=== PATIENT | female | born 1965 | race Caucasian/White ===

== ENCOUNTER 2021-06-14 16:29 | Inpatient (IN) | payer MEDICARE, MEDICAID ==
[~2021-06-14] VITALS: Ht 165.1 cm; Wt 70.9 kg
[~2021-06-14 16:29] MED LIST: ACET-890; COL100C PO; DIPH-423 PO; DIVA-76 PO; FLUT16SP2 NS; FOLI-43 PO; FURO40TA4 PO; GUAI5SYR5 PO; GUAI600T PO; HYDR1TAB PO; IBUP-1984 PO; LEVO25TA50 PO; POTA20TA39 PO; TRI150T CORPAK; [UNRECOGNIZED DRUG - CODE] CORPAK; [UNRECOGNIZED DRUG - CODE] PO
[2021-06-14] MEDS ORDERED: hydrALAZINE 20mg/ml inj. IV PRN (17:50)
[2021-06-14] MEDS ORDERED: morphine 2 MG/ML inj. syringe IV PRN (17:50)
[2021-06-14] MEDS ORDERED: acetaminophen 325mg tablet PO PRN (17:50)
[2021-06-14 18:01] LABS: BASOPHILS % (AUTO) 0.4 % (0-1); EOSINOPHILS % (AUTO) 0.4 % (0-6); HEMATOCRIT 38.9 % (35.0-45.0); HEMOGLOBIN 13.2 g/dl (12.0-16.0); LYMPHOCYTES # (AUTO) 2.2 X10'3 (1.1-4.8); LYMPHOCYTES % (AUTO) 26.4 % (21-51); MEAN CORPUSCULAR HEMOGLOBIN 34.5 PG (27.0-31.0); MEAN CORPUSCULAR HGB CONC 33.8 g/dL (33.0-36.5); MEAN CORPUSCULAR VOLUME 101.8 FL (78-98); MEAN PLATELET VOLUME 8.6 FL (7.4-10.4); MONOCYTES # (AUTO) 0.9 X10'3 (0-0.9); MONOCYTES % (AUTO) 11.2 % (2-12); NEUTROPHILS # (AUTO) 5.2 X10'3 (1.8-7.7); NEUTROPHILS % (AUTO) 61.6 % (42-75); PLATELET COUNT 153 X10'3 (140-440); RED BLOOD COUNT 3.82 X10'6 (4.20-5.60); RED CELL DISTRIBUTION WIDTH 14.1 % (11.5-14.5); WHITE BLOOD COUNT 8.4 X10'3 (4.5-11.0)
[2021-06-14 18:22] LABS: ALANINE AMINOTRANSFERASE 22 U/L (12-78); ALBUMIN 2.6 G/DL (3.4-5.0); ALBUMIN/GLOBULIN RATIO 0.7 (1.1-1.5); ALKALINE PHOSPHATASE 164 IU/L (46-116); ANION GAP 7 (8-16); ASPARTATE AMINO TRANSFERASE 42 U/L (10-37); BILIRUBIN,TOTAL 0.4 MG/DL (0.1-1.0); BLOOD UREA NITROGEN 39 MG/DL (7-18); BUN/CREATININE RATIO 47.6 (6.6-38.0); CALCIUM 9.2 MG/DL (8.5-10.1); CHLORIDE 104 MMOL/L (99-107); CREATININE 0.82 MG/DL (0.40-0.90); GLUCOSE 87 MG/DL (70-104); POTASSIUM 4.6 MMOL/L (3.5-5.1); SODIUM 144 MMOL/L (135-145); TOTAL CARBON DIOXIDE 32.6 MMOL/L (24-32); TOTAL PROTEIN 6.5 G/DL (6.4-8.2); eGFR 73 ML/MIN
--- NOTE | 2021-06-14 18:30 | NUR ---
pt given dinner tray family states pt hasnot ate since 1230 today
--- NOTE | 2021-06-14 19:00 | NUR ---
pt moved from [place] to room 17 to await ipa
--- NOTE | 2021-06-14 19:45 | NUR ---
pt and pt family notified they are NPO
[2021-06-14] MEDS: docusate sod 100mg capsule PO SCH (20:00)
[2021-06-14] MEDS ORDERED: DOCU250C39 PO (20:14)
[2021-06-14] MEDS ORDERED: PHEN16.22 PO (20:14)
[2021-06-14] MEDS ORDERED: LEVO200T8 PO (20:14)
[2021-06-14] MEDS ORDERED: CHOL20002 PO (20:14)
[2021-06-14] MEDS ORDERED: CALC-1276 PO (20:14)
[2021-06-14] MEDS ORDERED: DIPH-1055 PO (20:14)
[2021-06-14] MEDS ORDERED: IBAN150T21 PO (20:14)
[2021-06-14] MEDS ORDERED: CITA10TA14 PO (20:14)
[2021-06-14] MEDS ORDERED: ZINC50TA67 PO (20:20)
[2021-06-14] MEDS ORDERED: MULT-1085 PO (20:20)
[2021-06-14] MEDS ORDERED: ASCO-10 PO (20:20)
[2021-06-14] MEDS ORDERED: CHOL500049 PO (20:20)
[2021-06-14] MEDS ORDERED: ASCO500C17 PO (20:20)
[2021-06-14] MEDS: normal saline 1000ml 1,000 ML IV SCH (20:46)
[2021-06-14] MEDS: ondansetron/PF 4mg/2ml inj IV PRN (21:16)
[2021-06-14] MEDS: morphine 2 MG/ML inj. syringe IV PRN (21:17)
[2021-06-15] VITALS (22 sets, daily range): BP systolic 91–145; BP diastolic 46–80
--- NOTE | 2021-06-15 00:27 | NUR ---
PT IS RESTING. RECENT PAIN STAFF COUNSELOR SEEMS TO HAVE BEEN EFFECTIVE ACCORDING TO PT. PT IS RESTING WITH EVEN CHEST RISE AND FALL.
[2021-06-15] MEDS: morphine 2 MG/ML inj. syringe IV PRN ×5 (01:03→23:15)
[2021-06-15] MEDS ORDERED: metoclopramide 5 mg/ml inj IV ONE (01:20)
[2021-06-15 04:14] LABS: BASOPHILS % (AUTO) 0.5 % (0-1); EOSINOPHILS % (AUTO) 0.9 % (0-6); HEMATOCRIT 31.1 % (35.0-45.0); HEMOGLOBIN 10.6 g/dl (12.0-16.0); LYMPHOCYTES # (AUTO) 1.7 X10'3 (1.1-4.8); LYMPHOCYTES % (AUTO) 31.5 % (21-51); MEAN CORPUSCULAR HEMOGLOBIN 34.4 PG (27.0-31.0); MEAN PLATELET VOLUME 8.1 FL (7.4-10.4); MONOCYTES # (AUTO) 0.7 X10'3 (0-0.9); MONOCYTES % (AUTO) 13.2 % (2-12); NEUTROPHILS # (AUTO) 2.8 X10'3 (1.8-7.7); NEUTROPHILS % (AUTO) 53.9 % (42-75); PLATELET COUNT 110 X10'3 (140-440); RED BLOOD COUNT 3.09 X10'6 (4.20-5.60); WHITE BLOOD COUNT 5.3 X10'3 (4.5-11.0)
[2021-06-15 04:15] LABS: ALBUMIN 1.9 G/DL (3.4-5.0); ANION GAP 2 (8-16); BLOOD UREA NITROGEN 30 MG/DL (7-18); BUN/CREATININE RATIO 42.3 (6.6-38.0); CALCIUM 8.1 MG/DL (8.5-10.1); CHLORIDE 108 MMOL/L (99-107); CREATININE 0.71 MG/DL (0.40-0.90); GLUCOSE 92 MG/DL (70-104); POTASSIUM 4.4 MMOL/L (3.5-5.1); SODIUM 144 MMOL/L (135-145); TOTAL CARBON DIOXIDE 33.8 MMOL/L (24-32); eGFR 86 ML/MIN
[2021-06-15] MEDS: ondansetron/PF 4mg/2ml inj IV PRN (05:32)
[2021-06-15] MEDS: normal saline 1000ml 1,000 ML IV SCH ×3 (05:36→23:50)
[2021-06-15] MEDS: docusate sod 100mg capsule PO SCH ×2 (08:00→20:31)
[2021-06-15] MEDS: enoxaparin 40mg/0.4ml syringe SUBCUT SCH (08:00)
[2021-06-15] MEDS ORDERED: ringers solution, lacted 1,000 ML IV ONE (08:10)
[2021-06-15] MEDS ORDERED: non-formulary drug (Ibandronate Sodium 1 TAB) PO SCH (08:30)
[2021-06-15] MEDS ORDERED: divalproex sodium 500mg tablet.DR PO SCH (08:30)
[2021-06-15] MEDS ORDERED: CHOL20002 PO (09:35)
[2021-06-15] MEDS: divalproex sodium 500mg tablet.DR PO SCH (10:55)
--- NOTE | 2021-06-15 11:06 | NUR ---
georgie del rosario at bedside.
--- NOTE | 2021-06-15 11:29 | NUR ---
CALL JAKOB AUDITOR INTERNAL FOR ANY QUES OR CONCERN CALL [phone] HOUSE NUMBER ,CELLPHONE [phone].
--- NOTE | 2021-06-15 11:58 | NUR ---
[employer]ING [employer] SALES ATTENDANT JAKOB AT BEDSIDE.
[2021-06-15] MEDS ORDERED: ceFAZolin 1000mg inj ONE (13:35)
[2021-06-15] MEDS ORDERED: vancomycin 1,000mg inj ONE (13:35)
[2021-06-15] MEDS ORDERED: ePHEDrine 50MG/ML INJ. ONE (13:54)
[2021-06-15] MEDS ORDERED: sevoflurane 250ml liquid IH ONE (13:54)
[2021-06-15] MEDS ORDERED: midazolam 1 mg/ML 2ml injection ONE (13:58)
[2021-06-15] MEDS ORDERED: fentaNYL /PF 50mcg/ml 5ml ampule ONE (13:59)
[2021-06-15] MEDS ORDERED: clindamycin phosphate 150mg/ml inj. ONE (14:23)
[2021-06-15] MEDS ORDERED: TRANEXAMIC ACID 1 GM IN NACL,ISO-OS 100 ML IV ONE ×2 (14:25→16:30)
[2021-06-15] MEDS ORDERED: propofol inj 20 ML IV ONE (14:31)
[2021-06-15] MEDS ORDERED: rocuronium 10mg/ml inj IV ONE (14:31)
[2021-06-15] MEDS ORDERED: LIDOcaine 2% (20mg/ml) 5ml vial ONE (14:44)
[2021-06-15] MEDS ORDERED: ringers solution, lacted 1,000 ML IV SCH (15:10)
[2021-06-15] MEDS ORDERED: proCHLORperazine 10 MG/2 ml inj IV PRN (15:10)
[2021-06-15] MEDS ORDERED: meperidine/PF 25mg/ml syringe IV PRN ×3 (15:10)
[2021-06-15] MEDS ORDERED: ondansetron/PF 4mg/2ml inj IV PRN (15:10)
[2021-06-15] MEDS ORDERED: morphine 4 MG/ML inj SYRINge IV PRN (15:10)
[2021-06-15] MEDS ORDERED: morphine 2 MG/ML inj. syringe IV PRN (15:10)
[2021-06-15] MEDS ORDERED: acetaminophen 1,000mg/100ml IV 100 ML IV ONE (15:43)
[2021-06-15] MEDS ORDERED: glycopyrrolate 0.2mg/ml inj ONE (15:43)
[2021-06-15] MEDS ORDERED: ondansetron/PF 4mg/2ml inj ONE (15:43)
[2021-06-15] MEDS ORDERED: dexamethasone sod phosphate 4mg/ml inj. ONE (15:43)
[2021-06-15] MEDS ORDERED: neostigmine methylsulfate 1 MG/ML 10ml vial ONE (15:43)
--- NOTE | 2021-06-15 16:25 | NUR ---
Received from OR via , accompanied by Anesthesiologist DR LANDAVERDE and report given by Anesthesiolgist.AWAKENS TO VOICE. VITALS STABLE. DRESSING DI. KRISTI PAIN, ABDUCTION PILLOW IN PLACE. LEYVA WITH CLEAR URINE.
[2021-06-15 16:54] LABS: ISTAT ANION GAP 8 (8-12); ISTAT BUN 17 mg/dL (7-18); ISTAT CL 103 mmol/L (99-107); ISTAT CREATININE 0.5 mg/dL (0.6-1.1); ISTAT GLUCOSE 92 mg/dL (70-105); ISTAT HGB 8.2 g/dl (12.0-16.0); ISTAT Hct 24 %PCV (35-48); ISTAT IONIZED CALCIUM 1.17 mmol/L (1.03-1.32); ISTAT K 4.1 mmol/L (3.5-5.1); ISTAT NA 139 mmol/L (135-145); ISTAT TOTAL CO2 28 mmol/L (24-32); ISTAT eGFR > 90 ML/MIN
--- NOTE | 2021-06-15 18:45 | NUR ---
Report called to receiving nurse. Transferred via BED Belongings . Special Issues communicated to receiving nurse. AWAKE AND ORIENTED. VITALS STABLE. DRESSING DI. KRISTI PAIN. TO SURGICAL RM 355B AT THIS TIME.
[2021-06-15] MEDS ORDERED: non-formulary drug (Zinc 1 TAB) PO SCH (20:00)
[2021-06-15] MEDS ORDERED: oxcarbazepine 150mg tablet CORPAK SCH (20:00)
[2021-06-15] MEDS: calcium carbonate/vitamin D3 tablet PO SCH (20:26)
[2021-06-15] MEDS: ascorbic acid 500mg tablet PO SCH (20:31)
[2021-06-15] MEDS: diphenhydrAMINE 25mg capsule PO SCH (20:32)
[2021-06-15] MEDS: clindamycin 600mg/D5W 50ml 50 ML IV SCH (22:36)
[2021-06-15] MEDS ORDERED: phenobarbital 30mg tablet PO SCH (23:00)
[2021-06-16 00:08] VITALS: BP 101/59
[2021-06-16 03:07] VITALS: BP 88/55
[2021-06-16] MEDS: clindamycin 600mg/D5W 50ml 50 ML IV SCH ×2 (03:48→08:33)
[2021-06-16] MEDS: HYDROcodone/acetaminophen 5mg/325mg tablet PO PRN ×2 (05:24→11:32)
--- NOTE | 2021-06-16 06:07 | NUR ---
reported to days. noted decreased BP and possible drop in hemaglobin. check labs prior to PT. norco 5 given for PT pain. pt has not slept all night. continuously eating.
[2021-06-16 06:41] LABS: BASOPHILS % (AUTO) 0.2 % (0-1); EOSINOPHILS % (AUTO) 0.2 % (0-6); HEMATOCRIT 29.1 % (35.0-45.0); HEMOGLOBIN 9.9 g/dl (12.0-16.0); LYMPHOCYTES # (AUTO) 1.2 X10'3 (1.1-4.8); LYMPHOCYTES % (AUTO) 18.3 % (21-51); MEAN CORPUSCULAR HEMOGLOBIN 34.9 PG (27.0-31.0); MEAN CORPUSCULAR VOLUME 102.6 FL (78-98); MEAN PLATELET VOLUME 8.2 FL (7.4-10.4); MONOCYTES # (AUTO) 1.2 X10'3 (0-0.9); MONOCYTES % (AUTO) 18.1 % (2-12); NEUTROPHILS % (AUTO) 63.2 % (42-75); PLATELET COUNT 130 X10'3 (140-440); RED BLOOD COUNT 2.84 X10'6 (4.20-5.60); RED CELL DISTRIBUTION WIDTH 13.5 % (11.5-14.5); WHITE BLOOD COUNT 6.4 X10'3 (4.5-11.0)
[2021-06-16 07:00] VITALS: BP 99/62
[2021-06-16 07:00] LABS: ALBUMIN 1.7 G/DL (3.4-5.0); ANION GAP 2 (8-16); BLOOD UREA NITROGEN 19 MG/DL (7-18); BUN/CREATININE RATIO 32.2 (6.6-38.0); CHLORIDE 111 MMOL/L (99-107); CREATININE 0.59 MG/DL (0.40-0.90); GLUCOSE 104 MG/DL (70-104); POTASSIUM 4.7 MMOL/L (3.5-5.1); SODIUM 143 MMOL/L (135-145); TOTAL CARBON DIOXIDE 30.5 MMOL/L (24-32); eGFR > 90 ML/MIN
[2021-06-16 07:56] LABS: TOTAL CELLS COUNTED 100
[2021-06-16 07:57] LABS: LARGE PLATELETS FEW; PLATELET ESTIMATE DECREASED
[2021-06-16] MEDS ORDERED: levoTHYROXINE 25mcg tablet PO SCH (08:00)
[2021-06-16] MEDS ORDERED: non-formulary drug (Ascorbic Acid (Vitamin C) 1 CAP) PO SCH (08:00)
[2021-06-16] MEDS ORDERED: non-formulary drug (Cholecalciferol (Vitamin D3) (Vitamin D3) 1 CAP) PO SCH (08:00)
[2021-06-16] MEDS ORDERED: docusate sod 250mg capsule PO SCH (08:00)
[2021-06-16] MEDS ORDERED: non-formulary drug (Levothyroxine Sodium 1 TAB) PO SCH (08:00)
[2021-06-16] MEDS: levetiracetam 250mg tablet PO SCH (08:35)
[2021-06-16] MEDS: docusate sod 100mg capsule PO SCH ×2 (08:37→21:15)
[2021-06-16] MEDS: divalproex sodium 500mg tablet.DR PO SCH (08:37)
[2021-06-16] MEDS: potassium chloride 8mEq ER tablet PO SCH (08:37)
[2021-06-16] MEDS: calcium carbonate/vitamin D3 tablet PO SCH ×2 (08:38→21:15)
[2021-06-16] MEDS: cholecalciferol (vitamin D3) 1,000 unit (25mcg) tablet PO SCH (08:38)
[2021-06-16] MEDS: ascorbic acid 500mg tablet PO SCH (08:38)
[2021-06-16] MEDS: levoTHYROXINE 100mcg tablet PO SCH (08:39)
[2021-06-16] MEDS: multivitamins, therapeutics tablet PO SCH (08:39)
[2021-06-16] MEDS: furosemide 40mg tablet PO SCH (08:39)
[2021-06-16] MEDS: folic acid 1mg tablet PO SCH (08:39)
[2021-06-16] MEDS: CITALOpram 10mg tablet PO SCH (08:40)
[2021-06-16] MEDS: enoxaparin 40mg/0.4ml syringe SUBCUT SCH (08:41)
[2021-06-16] MEDS: normal saline 1000ml 1,000 ML IV SCH (09:50)
[2021-06-16 11:00] VITALS: BP 113/59
[2021-06-16] MEDS ORDERED: phenobarbital 30mg tablet PO SCH (11:05)
--- NOTE | 2021-06-16 12:29 | NUR ---
Contacted Yasmeen patients Health Sciences Manager to bring in patients dosage of Phenobarbital because we don't carry that dose. She said she will check and get back to me.
--- NOTE | 2021-06-16 12:35 | NUR ---
combed patients hair and performed oral care - brushed patient's teeth Addendum: 06/16/21 at 1237 by Alix Mims - Student CRUZ Amended: Links added.
[2021-06-16] MEDS ORDERED: HYDROcodone/acetaminophen 5mg/325mg tablet PO ONE (14:05)
[2021-06-16] MEDS ORDERED: oxcarbazepine 150mg tablet PO SCH (14:15)
[2021-06-16] MEDS: oxcarbazepine 150mg tablet PO SCH ×2 (14:28→21:14)
[2021-06-16 16:18] VITALS: BP 119/69
[2021-06-16] MEDS: mag hydrox/Alum hydrox/simeth 30ml oral suspension PO PRN ×2 (16:46→23:38)
[2021-06-16 18:00] VITALS: BP 144/57
--- NOTE | 2021-06-16 19:12 | NUR ---
Problems reprioritized. Patient report given, questions answered & plan of care reviewed with Jeniffer WU.
--- NOTE | 2021-06-16 19:32 | NUR ---
Patient in room [facility]. I have received report from Mallory WU and had the opportunity to ask questions and assume patient care.
[2021-06-16] MEDS: PHENOBARBITAL 16.2 MG PO SCH (21:15)
[2021-06-16] MEDS: diphenhydrAMINE 25mg capsule PO SCH (21:15)
[2021-06-16] MEDS: morphine 2 MG/ML inj. syringe IV PRN (21:17)
[2021-06-17] VITALS (7 sets, daily range): BP systolic 104–124; BP diastolic 52–66
[2021-06-17] MEDS: morphine 2 MG/ML inj. syringe IV PRN (03:31)
--- NOTE | 2021-06-17 06:28 | NUR ---
Problems reprioritized. Patient report given, questions answered & plan of care reviewed with Mallory WU.
[2021-06-17 06:38] LABS: BASOPHILS % (AUTO) 0.2 % (0-1); EOSINOPHILS % (AUTO) 0.5 % (0-6); HEMATOCRIT 26.3 % (35.0-45.0); LYMPHOCYTES # (AUTO) 1.7 X10'3 (1.1-4.8); LYMPHOCYTES % (AUTO) 18.5 % (21-51); MEAN CORPUSCULAR HEMOGLOBIN 34.6 PG (27.0-31.0); MEAN CORPUSCULAR HGB CONC 34.3 g/dL (33.0-36.5); MEAN CORPUSCULAR VOLUME 100.9 FL (78-98); MEAN PLATELET VOLUME 7.5 FL (7.4-10.4); MONOCYTES # (AUTO) 1.6 X10'3 (0-0.9); NEUTROPHILS # (AUTO) 5.6 X10'3 (1.8-7.7); NEUTROPHILS % (AUTO) 62.8 % (42-75); PLATELET COUNT 128 X10'3 (140-440); RED BLOOD COUNT 2.61 X10'6 (4.20-5.60); RED CELL DISTRIBUTION WIDTH 14.1 % (11.5-14.5); WHITE BLOOD COUNT 8.9 X10'3 (4.5-11.0)
[2021-06-17 06:52] LABS: ALBUMIN 1.5 G/DL (3.4-5.0); ANION GAP 2 (8-16); BLOOD UREA NITROGEN 17 MG/DL (7-18); BUN/CREATININE RATIO 29.8 (6.6-38.0); CALCIUM 7.9 MG/DL (8.5-10.1); CHLORIDE 108 MMOL/L (99-107); CREATININE 0.57 MG/DL (0.40-0.90); GLUCOSE 106 MG/DL (70-104); POTASSIUM 4.1 MMOL/L (3.5-5.1); SODIUM 142 MMOL/L (135-145); TOTAL CARBON DIOXIDE 32.1 MMOL/L (24-32); eGFR > 90 ML/MIN
--- NOTE | 2021-06-17 07:08 | NUR ---
Patient in room [facility]. I have received report from Jeniffer WU and had the opportunity to ask questions and assume patient care.
[2021-06-17] MEDS: CITALOpram 10mg tablet PO SCH (08:00)
[2021-06-17] MEDS: divalproex sodium 500mg tablet.DR PO SCH (08:24)
[2021-06-17] MEDS: oxcarbazepine 150mg tablet PO SCH ×2 (08:24→20:00)
[2021-06-17] MEDS: ascorbic acid 500mg tablet PO SCH (08:24)
[2021-06-17] MEDS: multivitamins, therapeutics tablet PO SCH (08:25)
[2021-06-17] MEDS: levoTHYROXINE 100mcg tablet PO SCH (08:25)
[2021-06-17] MEDS: furosemide 40mg tablet PO SCH (08:26)
[2021-06-17] MEDS: calcium carbonate/vitamin D3 tablet PO SCH ×2 (08:26→20:00)
[2021-06-17] MEDS: potassium chloride 8mEq ER tablet PO SCH (08:26)
[2021-06-17] MEDS: docusate sod 100mg capsule PO SCH ×2 (08:26→20:00)
[2021-06-17] MEDS: folic acid 1mg tablet PO SCH (08:26)
[2021-06-17] MEDS: HYDROcodone/acetaminophen 5mg/325mg tablet PO PRN (08:27)
[2021-06-17] MEDS: cholecalciferol (vitamin D3) 1,000 unit (25mcg) tablet PO SCH (08:28)
[2021-06-17] MEDS: levetiracetam 250mg tablet PO SCH (08:28)
[2021-06-17] MEDS: enoxaparin 40mg/0.4ml syringe SUBCUT SCH (08:29)
[2021-06-17] MEDS: magnesium hydroxide 30ml (MOM) UD suspension PO PRN (10:51)
[2021-06-17] MEDS: HYDROcodone/acetaminophen 10/325mg tab PO PRN ×3 (12:10→20:00)
--- NOTE | 2021-06-17 14:04 | NUR ---
Initial: Pt admit with left hip fracture. S/p left hip rhina arthroplasty 06/15. Pt on a regular diet documented with 75-100% PO intake meeting estimated nutrient needs at this time. LBM 06/16, receiving routine and PRN bowel care. No nutrition intervention implemented at this time. Will continue to follow. Recommendations: 1) Continue regular diet 2) Monitor need for additional protein for satiety 3) Routine bowel care 4) Scaled weight this admit; weekly scaled weights thereafter Addendum: 06/17/21 at [address] Amended: Links added.
--- NOTE | 2021-06-17 17:19 | NUR ---
BLADDER SCAN PERFORMED. 25ml VOLUME. WILL CONTINUE TO MONITOR
--- NOTE | 2021-06-17 17:50 | NUR ---
PAGER ID: [phone] MESSAGE: Mallory-Surg [id number] Re: Lisandro 355B patients craven DC'd at 1300 has not voided only has 25 ml's on bladder scan
--- NOTE | 2021-06-17 18:38 | NUR ---
Problems reprioritized. Patient report given, questions answered & plan of care reviewed with Cindi WU.
--- NOTE | 2021-06-17 18:41 | NUR ---
Patient in room [facility]. I have received report from Mallory WU and had the opportunity to ask questions and assume patient care.
[2021-06-17] MEDS: diphenhydrAMINE 25mg capsule PO SCH (21:19)
[2021-06-17] MEDS: PHENOBARBITAL 16.2 MG PO SCH (21:19)
--- NOTE | 2021-06-17 21:57 | NUR ---
Patient voided 100ml in bedpan. Dark martin urine. Bladder scanned performed and 5ml found, will continue to encourage fluids.
[2021-06-18] VITALS: BP 118/69
[2021-06-18] MEDS: HYDROcodone/acetaminophen 10/325mg tab PO PRN ×2 (04:09→10:18)
[2021-06-18 06:36] LABS: BASOPHILS % (AUTO) 0.3 % (0-1); EOSINOPHILS # (AUTO) 0.1 X10'3 (0-0.9); HEMATOCRIT 25.2 % (35.0-45.0); HEMOGLOBIN 8.6 g/dl (12.0-16.0); LYMPHOCYTES # (AUTO) 1.6 X10'3 (1.1-4.8); LYMPHOCYTES % (AUTO) 19.9 % (21-51); MEAN CORPUSCULAR HEMOGLOBIN 34.9 PG (27.0-31.0); MEAN CORPUSCULAR HGB CONC 34.1 g/dL (33.0-36.5); MEAN CORPUSCULAR VOLUME 102.6 FL (78-98); MEAN PLATELET VOLUME 7.6 FL (7.4-10.4); MONOCYTES # (AUTO) 1.4 X10'3 (0-0.9); MONOCYTES % (AUTO) 17.6 % (2-12); NEUTROPHILS # (AUTO) 4.8 X10'3 (1.8-7.7); NEUTROPHILS % (AUTO) 61.2 % (42-75); PLATELET COUNT 139 X10'3 (140-440); RED BLOOD COUNT 2.46 X10'6 (4.20-5.60); RED CELL DISTRIBUTION WIDTH 14.1 % (11.5-14.5); WHITE BLOOD COUNT 7.9 X10'3 (4.5-11.0)
--- NOTE | 2021-06-18 06:39 | NUR ---
Problems reprioritized. Patient report given, questions answered & plan of care reviewed with Letty WU.
[2021-06-18 06:57] LABS: ALBUMIN 1.3 G/DL (3.4-5.0); ANION GAP 0 (8-16); BLOOD UREA NITROGEN 16 MG/DL (7-18); BUN/CREATININE RATIO 27.6 (6.6-38.0); CALCIUM 8.3 MG/DL (8.5-10.1); CHLORIDE 106 MMOL/L (99-107); CREATININE 0.58 MG/DL (0.40-0.90); GLUCOSE 95 MG/DL (70-104); POTASSIUM 4.4 MMOL/L (3.5-5.1); SODIUM 140 MMOL/L (135-145); TOTAL CARBON DIOXIDE 34.2 MMOL/L (24-32); eGFR > 90 ML/MIN
[2021-06-18] MEDS: enoxaparin 40mg/0.4ml syringe SUBCUT SCH (10:12)
[2021-06-18] MEDS: cholecalciferol (vitamin D3) 1,000 unit (25mcg) tablet PO SCH (10:13)
[2021-06-18] MEDS: CITALOpram 10mg tablet PO SCH (10:13)
[2021-06-18] MEDS: levoTHYROXINE 100mcg tablet PO SCH (10:14)
[2021-06-18] MEDS: levetiracetam 250mg tablet PO SCH (10:14)
[2021-06-18] MEDS: diphenhydrAMINE 25mg capsule PO SCH (10:15)
[2021-06-18] MEDS: furosemide 40mg tablet PO SCH (10:16)
[2021-06-18] MEDS: divalproex sodium 500mg tablet.DR PO SCH (10:17)
[2021-06-18] MEDS: folic acid 1mg tablet PO SCH (10:17)
[2021-06-18] MEDS: ascorbic acid 500mg tablet PO SCH (10:17)
[2021-06-18] MEDS: docusate sod 100mg capsule PO SCH (10:18)
[2021-06-18] MEDS: magnesium hydroxide 30ml (MOM) UD suspension PO PRN (10:20)
[2021-06-18] MEDS: mag hydrox/Alum hydrox/simeth 30ml oral suspension PO PRN (10:20)
[2021-06-18] MEDS: oxcarbazepine 150mg tablet PO SCH (13:18)
[2021-06-18] MEDS: multivitamins, therapeutics tablet PO SCH (13:18)
[2021-06-18] MEDS: potassium chloride 8mEq ER tablet PO SCH (13:18)
[2021-06-18] MEDS: calcium carbonate/vitamin D3 tablet PO SCH (13:23)
--- NOTE | 2021-06-18 16:00 | NUR ---
Patient stable upon discharge. Patient left with the med van without the nurse present, transfer package did not include nurses report but telephone report was given to Jone at the [facility].RN called to [facility] to take off right AC IV. Spoke with Jone and stated thT IV has been taken out
== END 2021-06-18 14:10 | DRG 522 ==
LOC: ER 16:30 → ED HOLD 17:50 → SUR 3N 06-15 18:45
PROVIDERS: ADMIT Family Medicine; ATTEND Family Medicine
PROC: 0SRS0JA Replacement of Left Hip Joint, Femoral Surface with Synthetic Substitute, Uncemented, Open Approach (ICD-10-PCS; principal; 2021-06-15 13:54)
DX: M80.852A Other osteoporosis with current pathological fracture, left femur, initial encounter for fracture (principal); S70.12XA Contusion of left thigh, initial encounter; G40.909 Epilepsy, unspecified, not intractable, without status epilepticus; Z20.822 Contact with and (suspected) exposure to COVID-19; E03.9 Hypothyroidism, unspecified; M25.562 Pain in left knee; W18.39XA Other fall on same level, initial encounter; Z88.2 Allergy status to sulfonamides; Z88.1 Allergy status to other antibiotic agents; Z88.0 Allergy status to penicillin; Z88.8 Allergy status to other drugs, medicaments and biological substances; Z87.440 Personal history of urinary (tract) infections; Y93.89 Activity, other specified; Y92.89 Other specified places as the place of occurrence of the external cause; Y99.8 Other external cause status; Z79.899 Other long term (current) drug therapy
CPT/HCPCS: 36415; 71045; 73501; 73564; 80047; 80048; 80053; 84443; 85007; 85025; 87081; 87635; 93005; 97110; 97116; 97161; 97530; 99285; A4215; A4618; A6258; A6449; A7000; C1713; C1776; G0378; J0131; J0690; J1100; J1650; J2001; J2250; J2270; J2405; J2704; J2710; J2765; J3010; J3370; J3490; J7030; J7120; Q0163